=== PATIENT | female | born 2000 | race Caucasian/White ===

== ENCOUNTER 2020-06-27 08:14 | Outpatient (REF) | payer BC, SELFPAY ==
[2020-06-27 08:40] LABS: COVID-19 Test Negative (Negative)
== END 2020-06-27 08:15 | disposition home or self-care (01) ==
LOC: HO.LAB 08:14
PROVIDERS: Visit Provider Internal Medicine
DX: Z20.828 Contact with and (suspected) exposure to other viral communicable diseases (principal)
CPT/HCPCS: 87635; C9803

== ENCOUNTER 2020-07-07 10:32 | Emergency (ER) | payer BC, SELFPAY ==
[2020-07-07 11:12] VITALS: BP 124/64; PULSE 99; RESP 16; TEMP 37.3; O2SAT 99; BMI 29.2
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
[2020-07-07 12:20] LABS: MANUAL DIFF FLAG NO
[2020-07-07 12:22] LABS: Basophils Percent Auto 0.4 % (0-2); Eosinophils Absolute Auto 0.1 X10*3/uL (0.0-0.4); Eosinophils Percent Auto 0.7 % (0-4); Hematocrit 45.2 % (37-47); Hemoglobin 14.8 g/dl (12.0-16.0); Imm Gran Abs Auto 0.03 X10*3/uL (0.00-0.03); Imm Gran Pct Auto 0.3 % (0.0-0.4); Lymphocytes Absolute Auto 2.3 X10*3/uL (1.2-4.9); Lymphocytes Percent Auto 20.2 % (20-40); Mean Corpuscular HGB Conc 32.7 g/dl (31.0-35.0); Mean Corpuscular Hemoglobin 28.6 pg (27.0-33.0); Mean Corpuscular Volume 87.4 fL (80-98); Mean Platelet Volume 9.5 fL (9.4-12.3); Monocytes Absolute Auto 0.7 X10*3/uL (0.1-1.2); Monocytes Percent Auto 6.1 % (2-11); Neutrophils Absolute Auto 8.3 X10*3/uL (2.0-8.3); Neutrophils Percent Auto 72.3 % (45-73); Platelet Count 312 X10*3/uL (160-400); Red Blood Count 5.17 X10*6/uL (4.20-5.50); Red Cell Distribution Width 12.3 % (11.0-16.0); White Blood Count 11.4 X10*3/uL (4.8-10.8)
[2020-07-07 12:42] LABS: Urine Pregnancy NEG (NEGATIVE)
[2020-07-07 12:43] LABS: UPreg QC Valid YES
[2020-07-07 12:45] LABS: Alanine Aminotransferase 10 U/L (0-31); Albumin Level 4.7 g/dL (3.5-5.0); Alkaline Phosphatase 92 U/L (39-117); Anion Gap 13 (12-20); Aspartate Amino Transferase 16 U/L (5-31); Bilirubin Total 0.4 mg/dL (0.0-1.0); Blood Urea Nitrogen 12 mg/dL (9-16); Calcium 9.3 mg/dL (8.4-10.2); Carbon Dioxide 24 mmol/L (22-29); Chloride 106 mmol/L (96-108); Creatinine Clr Calc Pharmacy 88.8; Estimated Glomerular Filt Rate > 60; Glucose Random 81 mg/dL (60-115); Potassium 4.4 mmol/l (3.3-5.1); Sodium 139 mmol/L (135-145); Total Protein 7.9 g/dL (6.5-8.0)
--- NOTE | 2020-07-07 12:45 | PC.NURSE ---
Rene (jon[facility] team) is at pt's bedside, pt aware of plan of care.
[2020-07-07 12:52] LABS: Ethanol < 10 mg/dL
[2020-07-07 13:00] LABS: Amphetamine Screen Urine Not Detected (Not Detect); Barbiturates, Urine Not Detected (Not Detect); Benzodiazepines Screen Urine Not Detected (Not Detect); Cannabinoid Screen Urine POSITIVE (Not Detect); Cocaine Screen Urine Not Detected (Not Detect); Opiate Screen Urine Not Detected (Not Detect); Phencyclidine Screen Urine Not Detected (Not Detect)
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
[2020-07-07 13:29] VITALS: BP 117/75; PULSE 92; RESP 18; TEMP 37; O2SAT 99
== END 2020-07-07 13:43 | disposition home or self-care (01) ==
PROVIDERS: Physician Assistant; Emergency Provider Emergency Medicine
DX: F33.1 Major depressive disorder, recurrent, moderate (principal); R45.851 Suicidal ideations; F41.1 Generalized anxiety disorder; F43.0 Acute stress reaction; F12.90 Cannabis use, unspecified, uncomplicated
CPT/HCPCS: 36415; 80053; 80307; 80320; 81025; 85025; 99284

== ENCOUNTER 2020-07-15 10:58 | Outpatient (REF) | payer BC, SELFPAY ==
[2020-07-15 11:42] LABS: COVID-19 Test Negative (Negative)
== END 2020-07-15 10:59 | disposition home or self-care (01) ==
LOC: HO.LAB 10:58
PROVIDERS: Visit Provider Internal Medicine
DX: Z20.828 Contact with and (suspected) exposure to other viral communicable diseases (principal)
CPT/HCPCS: 87635; C9803

== ENCOUNTER 2020-09-22 09:34 | Emergency (ER) | payer OTHER, BC, SELFPAY ==
[2020-09-22 09:38] VITALS: BP 121/69; PULSE 98; RESP 16; TEMP 36.7; O2SAT 98; BMI 28.2
[2020-09-22 10:53] LABS: UPreg QC Valid YES; Urine Pregnancy NEGATIVE (NEGATIVE)
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
== END 2020-09-22 11:20 | disposition home or self-care (01) ==
PROVIDERS: Nurse Practitioner Primary Care; Emergency Provider Emergency Medicine; PCP Pediatrics
DX: S39.012A Strain of muscle, fascia and tendon of lower back, initial encounter (principal); S06.0X9A Concussion with loss of consciousness of unspecified duration, initial encounter; G44.309 Post-traumatic headache, unspecified, not intractable; M54.2 Cervicalgia; V43.52XA Car driver injured in collision with other type car in traffic accident, initial encounter; Y93.9 Activity, unspecified; Y92.410 Unspecified street and highway as the place of occurrence of the external cause; Y99.9 Unspecified external cause status
CPT/HCPCS: 81025; 99283

== ENCOUNTER 2020-09-28 08:37 | Outpatient (REF) | payer BC, SELFPAY | END 2020-09-28 08:38 | disposition home or self-care (01) | LOC: HO.LAB 08:37 | PROVIDERS: Visit Provider Internal Medicine | DX: Z20.822 Contact with and (suspected) exposure to COVID-19 (principal) | CPT/HCPCS: 36415; C9803; U0003; U0005 ==

== ENCOUNTER 2020-11-06 11:56 | Outpatient (REF) | payer BC, SELFPAY ==
[2020-11-06 15:59] LABS: SARS COV2 PCR INHOUSE NEGATIVE (Negative)
== END 2020-11-06 11:57 | disposition home or self-care (01) ==
LOC: HO.LAB 11:56
PROVIDERS: Visit Provider Internal Medicine
DX: Z20.822 Contact with and (suspected) exposure to COVID-19 (principal)
CPT/HCPCS: C9803; U0003